=== PATIENT | male | born 1945 | race Caucasian/White ===

== ENCOUNTER 2018-04-14 08:54 | Emergency (ER) | payer MEDICARE ==
[~2018-04-14] VITALS: Ht 172.7 cm; Wt 84.3 kg
[2018-04-14 09:49] VITALS: BP 146/86
[2018-04-14] MEDS ORDERED: LOSA100T6 PO (09:53)
[2018-04-14] MEDS ORDERED: ACYC-114 PO (09:53)
[2018-04-14] MEDS ORDERED: SODIUM CHLORIDE FLUSH 10ML SYR IVF ONE (10:00)
[2018-04-14 10:07] LABS: ALANINE AMINOTRANSFERASE 37 U/L (12-78); ALBUMIN 3.8 g/dL (3.4-5.0); ANION GAP 8 mmol/L (5-15); CALCIUM 8.7 mg/dL (8.5-10.1); CHLORIDE 108 mmol/L (98-107); CREATININE 1.08 mg/dL (0.7-1.3)
[2018-04-14 10:09] LABS: ALKALINE PHOSPHATASE 66 U/L (45-117); BILIRUBIN,TOTAL 0.6 mg/dL (0.2-1.0); TOTAL PROTEIN 7.2 g/dL (6.4-8.2)
[2018-04-14 10:15] LABS: INTERNATIONAL NORMALIZED RATIO 0.98 (0.93-1.1); PROTHROMBIN TIME 10.2 Seconds (9.6-11.5)
[2018-04-14 10:24] LABS: BASOPHILS # (AUTO) 0.03 x10^3/uL (0-0.1); BASOPHILS % (AUTO) 0 % (0-1); EOSINOPHILS % (AUTO) 2 % (1-7); LYMPHOCYTES # (AUTO) 1.81 x10^3/uL (1-3.4); LYMPHOCYTES % (AUTO) 27 % (22-44); MD NO; MEAN CORPUSCULAR HEMOGLOBIN 33.8 pg (27.5-34.5); MEAN CORPUSCULAR HGB CONC 34.5 g/dL (33.2-36.2); MEAN CORPUSCULAR VOLUME 97.9 fL (81-97); MEAN PLATELET VOLUME 8.1 fL (7.4-10.4); MONOCYTES # (AUTO) 0.67 x10^3/uL (0.2-0.8); MONOCYTES % (AUTO) 10 % (2-9); NEUTROPHILS # (AUTO) 4.05 x10^3/uL (1.8-6.8); NEUTROPHILS % (AUTO) 61 % (42-75); PLATELET COUNT 243 x10^3/uL (130-400); RED CELL DISTRIBUTION WIDTH 13.9 % (9.4-14.8)
== END 2018-04-14 11:57 | disposition home or self-care (01) ==
LOC: ED 11:30
DX: K92.1 Melena (principal); K92.2 Gastrointestinal hemorrhage, unspecified; I10 Essential (primary) hypertension
CPT/HCPCS: 36415; 80053; 83690; 85025; 85610; 85730; 86850; 86900; 99284

== ENCOUNTER 2019-01-18 08:38 | Outpatient (CLI) | payer MEDICARE ==
[~2019-01-18 08:38] MED LIST: ACYC-114 PO; LOSA100T14 PO
[2019-01-18] MEDS ORDERED: DESO15OI3 TP (09:24)
[2019-01-18] MEDS ORDERED: CLOB15CR19 TP (09:24)
[2019-01-18] MEDS ORDERED: AMLO-150 PO (09:24)
[2019-01-18] MEDS ORDERED: ATOR-2 PO (09:24)
[2019-01-18] MEDS ORDERED: UMEC1DIS PO (09:24)
[2019-01-18] MEDS ORDERED: TIOT4MIS3 PO (09:24)
[2019-01-18] MEDS ORDERED: ALBU8.5H8 PO (09:24)
[2019-01-18] MEDS ORDERED: EZET10TA18 PO (09:24)
[2019-01-18] MEDS ORDERED: VITAMIN D3 PO (09:46)
[2019-01-18] MEDS ORDERED: MULT-516 PO (09:46)
[2019-01-18] MEDS ORDERED: COQ10 PO (09:46)
[2019-01-18 09:56] LABS: BASOPHILS # (AUTO) 0.03 x10^3/uL (0-0.1); BASOPHILS % (AUTO) 1 % (0-1); EOSINOPHILS # (AUTO) 0.06 x10^3/uL (0-0.4); EOSINOPHILS % (AUTO) 1 % (1-7); LYMPHOCYTES # (AUTO) 1.34 x10^3/uL (1-3.4); LYMPHOCYTES % (AUTO) 21 % (22-44); MD NO; MEAN CORPUSCULAR HEMOGLOBIN 33.2 pg (27.5-34.5); MEAN CORPUSCULAR HGB CONC 33.9 g/dL (33.2-36.2); MEAN CORPUSCULAR VOLUME 97.9 fL (81-97); MEAN PLATELET VOLUME 8.1 fL (7.4-10.4); MONOCYTES # (AUTO) 0.61 x10^3/uL (0.2-0.8); MONOCYTES % (AUTO) 9 % (2-9); NEUTROPHILS # (AUTO) 4.49 x10^3/uL (1.8-6.8); NEUTROPHILS % (AUTO) 69 % (42-75); PLATELET COUNT 271 x10^3/uL (130-400); RED BLOOD COUNT 5.03 x10^6/uL (4.38-5.82); RED CELL DISTRIBUTION WIDTH 13.4 % (9.4-14.8)
[2019-01-18 10:04] LABS: INTERNATIONAL NORMALIZED RATIO 1.07 (0.93-1.1); PROTHROMBIN TIME 11.3 Seconds (9.6-11.5)
[2019-01-18 10:05] LABS: ANION GAP 7 mmol/L (5-15); CALCIUM 8.8 mg/dL (8.5-10.1); CHLORIDE 110 mmol/L (98-107); CREATININE 1.03 mg/dL (0.7-1.3)
== END 2019-01-18 23:59 | disposition home or self-care (01) ==
LOC: STAR 08:38
PROVIDERS: ATTEND Internal Medicine Cardiovascular Disease
DX: Z01.810 Encounter for preprocedural cardiovascular examination (principal); R94.31 Abnormal electrocardiogram [ECG] [EKG]; I10 Essential (primary) hypertension; E78.5 Hyperlipidemia, unspecified
CPT/HCPCS: 36415; 80048; 85025; 85610

== ENCOUNTER 2019-01-24 07:16 | Day surgery (SDC) | payer MEDICARE ==
[2019-01-18 09:36] VITALS: BP 144/91
[~2019-01-24] VITALS: Ht 172.7 cm; Wt 84.1 kg
[~2019-01-24 07:16] MED LIST changes: +ALBU8.5H8 PO; +AMLO-150 PO; +ATOR-2 PO; +CLOB15CR19 TP; +COQ10 PO; +DESO15OI3 TP; +EZET10TA18 PO; +MULT-516 PO; +TIOT4MIS3 PO; +UMEC1DIS PO; +VITAMIN D3 PO
[2019-01-24] MEDS ORDERED: MIDAZOLAM 1 MG/ML, 2ML ONE (07:57)
[2019-01-24] MEDS ORDERED: LIDOCAINE 1%, 20ML ONE (07:57)
[2019-01-24] MEDS ORDERED: FENTANYL PF 100 MCG/2ML ONE (07:57)
[2019-01-24] MEDS ORDERED: DIPHENHYDRAMINE 50 MG/ML, 1ML ONE (07:57)
[2019-01-24] MEDS ORDERED: SODIUM CHLORIDE 0.9% 1,000 ML IV SCH (11:00)
== END 2019-01-24 15:54 | disposition home or self-care (01) ==
LOC: CACL 07:16
PROVIDERS: ATTEND Internal Medicine Cardiovascular Disease
DX: I25.10 Atherosclerotic heart disease of native coronary artery without angina pectoris (principal); I10 Essential (primary) hypertension; E78.5 Hyperlipidemia, unspecified
CPT/HCPCS: 93458; 99156; 99157; C1760; C1894; J1200; J2250; J3010; J3490; Q9967

== ENCOUNTER 2020-07-04 11:24 | Emergency (ER) | payer MEDICARE ==
[~2020-07-04] VITALS: Ht 172.7 cm; Wt 81.0 kg
[~2020-07-04 11:24] MED LIST changes: -EZET10TA18 PO; +EZET10TA70 PO
[2020-07-04] MEDS ORDERED: FLUORESCEIN OPHTHALMIC 1 MG STRIP ONE (11:26)
[2020-07-04] MEDS ORDERED: PROPARACAINE OPHTH 0.5%, 15ML ONE (11:27)
[2020-07-04 11:36] VITALS: BP 169/95
[2020-07-04] MEDS ORDERED: LORazepam 2 MG/ML, 1ML ONE (11:40)
[2020-07-04] MEDS ORDERED: LORazepam 2 MG/ML, 1ML IVPush ONE (12:00)
--- NOTE | 2020-07-04 12:17 | NUR ---
LATE ENTRY D/T PT CARE: PT C/O BILAT EYE PAIN AFTER ACCIDENTLY DUMPING ISOPROPAL ALCOHOL ONTO FACE, ALSO INGESTING SOME. TASK RN AT BEDSIDE, IMMEDIATELY STARTED EYE IRRIGATION WITH NS. PT GIVEN PROPARACAINE FOR COMFORT. RECEIVED VERBAL ORDER FROM MD FOR ATIVAN 1MG IV ONCE. PT CONNECTED TO MONITORING. MD AT BEDSIDE FOR ASSESSMENT. PT AT BEDSIDE. PT MORE RELAXED AFTER ATIVAN. IRRIGATION CONTINUES FOR BOTH EYES.
[2020-07-04] MEDS ORDERED: PROPARACAINE OPHTH 0.5%, 15ML EACHEYE ONE (12:30)
[2020-07-04] MEDS ORDERED: FLUORESCEIN OPHTHALMIC 1 MG STRIP EACHEYE ONE (12:30)
--- NOTE | 2020-07-04 12:36 | NUR ---
PT HAS HAD 1.5L NS IRRIGATE IN EACH EYE. PT STATES HE IS FEELING 100% BETTER.
--- NOTE | 2020-07-04 13:12 | NUR ---
PT C/O EYE DISCOMFORT, PROPARACAINE DROP TO EACH EYE ADMIN, COLD WASH CLOTH PLACED ON FACE.
== END 2020-07-04 13:57 | disposition home or self-care (01) ==
LOC: ED 12:23
DX: H10.213 Acute toxic conjunctivitis, bilateral (principal)
CPT/HCPCS: 96374; 99283; J2060

== ENCOUNTER 2021-07-09 07:29 | Outpatient (CLI) | payer MEDICARE ==
[~2021-07-09 07:29] MED LIST changes: -ACYC-114 PO; +ACYC-40 PO
== END 2021-07-09 23:59 | disposition home or self-care (01) ==
LOC: CVU 07:29
PROVIDERS: ATTEND Internal Medicine Cardiovascular Disease
DX: Z02.9 Encounter for administrative examinations, unspecified (principal)